=== PATIENT | male | born 1985 | race Caucasian/White ===

== ENCOUNTER 2016-06-28 12:25 | Emergency (ER) | payer BC, OTHER ==
[2016-06-28] MEDS ORDERED: Sodium Chloride 0.9% 1,000 ML ONE (12:49)
[2016-06-28 13:02] LABS: #Basophils 0.1 thou/uL (0.0-0.2); #Eosinphils 0.1 thou/uL (0.0-0.7); #Lymphocytes 1.5 thou/uL (1.20-3.40); #Monocytes 0.5 thou/uL (0.11-0.59); #Neutrophils 4.1 thou/uL (1.40-6.50); %Eosinophils 1.8 % (0.0-10.0); %Lymphocytes 23.9 % (21.0-51.0); %Monocytes 7.6 % (0.0-10.0); %Neutrophils 65.8 % (42.0-75.0); Hemoglobin 15.1 g/dL (14.0-18.0); Mean Corpuscular HGB CONC 33.5 g/dL (32.0-36.0); Mean Corpuscular Hemoglobin 30.9 pg (27.0-31.0); Mean Corpuscular Volume 92.1 fl (80.0-94.0); Mean Platelet Volume 7.4 fL (7.4-10.4); Platelet Count 215 thou/uL (130-400); RBC Distribution Width 11.3 % (11.5-14.5); Red Blood Cell (RBC) Count 4.89 mill/uL (4.70-6.10); White Blood Cell (WBC) Count 6.2 thou/uL (4.8-10.8)
[2016-06-28 13:20] LABS: ALT (SGPT) 165 U/L (0-55); AST (SGOT) 306 U/L (5-34); Albumin 4.4 g/dL (3.5-5.0); Alkaline Phosphatase 40 U/L (40-150); Anion Gap 16 mmol/L (10-20); BUN (Urea Nitrogen) 9 mg/dL (8.9-20.6); Bilirubin, Total 0.5 mg/dL (0.2-1.2); Calc. Creatinine Clearance 0 mL/min (70-130); Calcium 9.2 mg/dL (7.8-10.44); Carbon Dioxide 27 mmol/L (22-29); Chloride 102 mmol/L (98-107); Estimated GFR-MDRD 76; Globulin 2.7 g/dL (2.4-3.5); Glucose 92 mg/dL (70-105); Potassium 3.6 mmol/L (3.5-5.1); Protein, Total 7.1 g/dL (6.0-8.3); Sodium 141 mmol/L (136-145)
--- NOTE | 2016-06-28 14:44 | CT ---
CT BRAIN: Date: 06-28-16 Provided Clinical History: Seizure. FINDINGS: The ventricular system appears normal in size and morphology. There is no evidence for intracranial hemorrhage or mass effect. The extracranial soft tissues and osseous structures demonstrate no acute abnormality. IMPRESSION: No evidence for intracranial hemorrhage or mass effect. POS: JV
== END 2016-06-28 14:49 | disposition home or self-care (01) ==
LOC: NAV ERS 12:25
DX: R56.9 Unspecified convulsions (principal)
CPT/HCPCS: 70450; 80053; 83735; 85025; 93005; 94760; 96360; J7050

== ENCOUNTER 2019-05-10 16:44 | Outpatient (CLI) | payer OTHER ==
--- NOTE | 2019-05-10 17:27 | RAD ---
Lumbar spine 3 views HISTORY: Low back pain. FINDINGS: There is a transitional vertebra at the lumbosacral junction with an enlarged left transver se process that articulates with the left side of the upper sacrum. It is not clear as to the number of lumbar vertebrae on this exam. Increased sclerosis at the pseudojoint. Pedicles are intact. Vertebral body heights and alignment are maintained. No acute fracture, dislocat ion, or aggressive osseous erosions. 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 This can be the source of low back pain, on the left side in this case. Transitional vertebra at the lumbosacral junction, so that great care must be be taken when assigning lumbar levels on cross-sectional imaging.
== END 2019-05-10 16:45 | disposition home or self-care (01) ==
LOC: NAV RAD 16:44
PROVIDERS: ATTEND Nurse Practitioner Adult Health
DX: M54.5 Low back pain (principal); G89.29 Other chronic pain
CPT/HCPCS: 72100